=== PATIENT | male | born 1950 | race Caucasian/White ===

== ENCOUNTER 2024-03-12 19:52 | Emergency (ER) | payer SELFPAY ==
[2024-03-12] MEDS ORDERED: Amiodarone In Dextrose 200 ML ONE (20:10)
[2024-03-12] MEDS ORDERED: fentaNYL 50 mcg/mL 1 mL Vial ONE ×3 (20:17→21:13)
[2024-03-12] MEDS ORDERED: Sodium Bicarb 50 mEq/50 ML VIAL ONE (20:23)
[2024-03-12 20:24] LABS: INR-International Normal Ratio 0.9
[2024-03-12 20:25] LABS: Hematocrit 46.4 % (42.0-52.0); Hemoglobin 14.6 g/dL (14.0-18.0); Mean Corpuscular HGB CONC 31.5 g/dL (32.0-36.0); Mean Corpuscular Hemoglobin 28.1 pg (27.0-31.0); Mean Corpuscular Volume 89.2 fl (78.0-98.0); Mean Platelet Volume 7.9 fL (7.4-10.4); Platelet Count 274 10x3/uL (130-400); RBC Distribution Width 12.9 % (11.5-14.5); White Blood Cell (WBC) Count 20.3 10x3/uL (4.8-10.8)
[2024-03-12 20:30] LABS: Base Excess-Venous -9.6 mmol/L (-2.0 to 3.0); Bicarbonate (HCO3v) 20.7 mmol/L (22.0-28.0); CO2 Tension (PvCO2) 61.8 mmHg (42.0-51.0); Calcium, Ionized 1.06 mmol/L (1.15-1.33); Chloride 110 mmol/L (98-107); Hemoglobin - Calc 16.5 g/dL (14.0-18.0); Potassium 3.3 mmol/L (3.5-5.1); Sodium 149 mmol/L (138-145); T. Carbon Dioxide 22.6 mmol/L (22.0-28.0); vO2 Saturation-calc 98.5 % (60.0-85.0)
[2024-03-12 20:32] LABS: ALT (SGPT) 46 U/L (8-55); AST (SGOT) 70 U/L (5-34); Albumin 3.4 g/dL (3.4-4.8); Alkaline Phosphatase 122 U/L (40-110); Anion Gap 23 mmol/L (10-20); BUN (Urea Nitrogen) 16 mg/dL (8.4-25.7); Bilirubin, Total 0.5 mg/dL (0.2-1.2); Calc. Creatinine Clearance 0 mL/min (70-130); Calcium 8.4 mg/dL (7.8-10.44); Carbon Dioxide 17 mmol/L (23-31); Chloride 107 mmol/L (98-107); Estimated GFR 60; Globulin 2.8 g/dL (2.4-3.5); Glucose 274 mg/dL (83-110); Magnesium 1.8 mg/dL (1.6-2.6); Potassium 3.2 mmol/L (3.5-5.1); Protein, Total 6.2 g/dL (5.8-8.1); Sodium 144 mmol/L (136-145)
[2024-03-12 20:37] LABS: Eosinophils 2 % (0-10); Lymphocytes 44 % (21-51); MDiff Complete? YES; Monocytes 3 % (0-10); Neutrophil 49 % (42-75); Platelet Adequacy Comment Appears Adequate
[2024-03-12 20:47] LABS: Troponin I 0.085 ng/mL (< 0.028)
[2024-03-12] MEDS ORDERED: Potassium Chloride 20 MEQ (100 mL) BAG ONE (20:50)
[2024-03-12] MEDS ORDERED: Magnesium 2 GM/50 ML BAG (IN WATER) ONE (20:56)
== END 2024-03-12 21:23 | disposition short-term general hospital (02) ==
LOC: EDBD → MADERS 19:52
DX: S06.6X0A Traumatic subarachnoid hemorrhage without loss of consciousness, initial encounter (principal); I49.01 Ventricular fibrillation; E87.6 Hypokalemia; W18.30XA Fall on same level, unspecified, initial encounter; Y92.091 Bathroom in other non-institutional residence as the place of occurrence of the external cause
CPT/HCPCS: 31500; 36416; 51702; 70450; 71045; 72125; 80053; 82330; 82435; 82803; 83735; 83880; 84132; 84295; 84484; 85014; 85025; 85610; 85730; 92950; 94760; 96365; 96375; 96376; J0283; J3010; J3475; J3480